=== PATIENT | female | born 1935 | race Caucasian/White ===

== ENCOUNTER → 2020-06-07 | Outpatient (CLI) | payer MEDICARE, OTHER ==
[~2020-06-07] MED LIST: ASPIRIN325 PO; CRANBERRY400 MG PO; METAMUCIL PAC1 UDPKT PO; OXYBUTYNIN 5 MG5 M2 PO; OXYCODONE HCL 55 MG PO; TRAMADOL 50 MG50 MG PO
--- NOTE | 2020-06-07 16:07 | 2DMMODE ---
[place] [address] 2 D/M-MODE ECHOCARDIOGRAM Name: AUDREY CORRIGAN Room: [facility]#: [id number] Admission: 06/07/20 Attend Phys: Hudson Jack Discharge: Date of : 31 Date of Service: 06/07/20 1607 Report #: [id number] THIS REPORT FOR: cc: Darryl Avila MD, Matthew D MD Blick,Deonte Ji MD [facility] ~ APPROVED REPORT Study performed: 06/07/2020 12:59:52 EXAM: Comprehensive 2D, Doppler, and color-flow Echocardiogram Patient Location: Out-Patient BSA: 1.65 HR: 68 bpm BP: 125/70 mmHg Other Information Study Quality: Good Indications Dyspnea Chest Pain 2D Dimensions IVSd: 11.53 (7-11mm) LVOT Diam: 20.12 (18-24mm) LVDd: 43.98 mm PWd: 10.65 (7-11mm) Ascending Ao: 29.56 (22-36mm) LVDs: 27.37 (25-40mm) Aortic Root: 29.66 mm Volumes Left Atrial Volume (Systole) LA ESV Index: 14.70 mL/m2 Aortic Valve AoV Peak Adolfo.: 1.25 m/s AO Peak Gr.: 6.22 mmHg LVOT Max P.61 mmHg AO Mean Gr.: 2.88 mmHg LVOT Mean P.18 mmHg LVOT Max V: 1.07 m/s AO V2 VTI: 19.97 cm LVOT Mean V: 0.67 m/s LYNNE (VTI): 4.16 cm2 LVOT V1 VTI: 26.13 cm AI [place]: 3.21 m/s2 AI PHT: 328.73 [place] [address] 2 D/M-MODE ECHOCARDIOGRAM Name: AUDREY CORRIGAN Room: [facility]#: [id number] Admission: 06/07/20 Attend Phys: Hudson Jack Discharge: Date of : 31 Date of Service: 06/07/20 1607 Report #: [id number] Mitral Valve E/A Ratio: 0.55 MV Decel. Time: 445.47 ms MV E Max Adolfo.: 0.40 m/s MV PHT: 129.19 ms MVA (PHT): 1.70 cm2 TDI E/Lateral E': 5.00 E/Medial E': 8.00 Medial E' Adolfo.: 0.05 m/s Lateral E' Adolfo.: 0.08 m/s Pulmonary Valve PV Peak Adolfo.: 0.72 m/s PV Peak Gr.: 2.04 mmHg Tricuspid Valve RAP Estimate: 5.00 mmHg TR Peak Gr.: 18.30 mmHg RVSP: 23.30 mmHg PA Pressure: 23.30 mmHg Left Ventricle The left ventricle is normal size. There is normal LV segmental wall motion. There is normal left ventricular wall thickness. Left ventricular systolic function is normal. The left ventricular ejection fraction is within the normal range. LVEF is 55-60%. Grade I - abnormal relaxation pattern. Right Ventricle The right ventricle is normal size. The right ventricular systolic function is normal. Atria The left atrium size is normal. The right atrium size is normal. Aortic Valve Mild aortic valve sclerosis. Mild aortic regurgitation. There is no aortic valvular stenosis. Mitral Valve The mitral valve is normal in structure. Trace mitral regurgitation. No evidence of mitral valve stenosis. Tricuspid Valve The tricuspid valve is normal in structure[place] [address] 2 D/M-MODE ECHOCARDIOGRAM Name: AUDREY CORRIGAN Room: [facility]#: [id number] Admission: 06/07/20 Attend Phys: Hudson Jack Discharge: Date of : 31 Date of Service: 06/07/20 1607 Report #: [id number] regurgitation. Pulmonic Valve The pulmonary valve is normal in structure. Mild pulmonic regurgitation. Great Vessels The aortic root is normal in size. IVC is normal in size and collapses >50% with inspiration. Pericardium There is no pericardial effusion. <Conclusion> LVEF is 55-60%. Mild aortic valve sclerosis. Mild aortic regurgitation. <ELECTRONICALLY SIGNED> By: Deonte Haji MD, FACC 06/07/201606 06 06 Deonte Haji MD, FACC /INF
--- NOTE | 2020-06-07 17:53 | CARDNUC ---
[place] [address] CARDIAC NUCLEAR IMAGING REPORT Name: AUDREY CORRIGAN Room: [facility]#: [id number] Admission: 06/07/20 Attend Phys: Hudson Jack Discharge: Date of : 31 Date of Service: 06/07/20 1752 Report #: [id number] THIS REPORT FOR: cc: Darryl Avila MD, Matthew D MD [place], Michael J. MD [facility] ~ APPROVED REPORT Study performed: 06/07/2020 15:39:47 Exam: Nuclear Stress Test Indication: Chest pain, Dyspnea on exertion Patient Location: Out-Patient Stress Tech: Jaymie Beverly Stress Nurse: Genevieve Vann RN NM Tech:DARLING Celeste Ht: 5 ft 2 in Wt: 141 lbs BSA: 1.65 m2 BMI: 25.78 Medical History Medical History: HTN, Chest pain, LILLY, uses cane for ambulation, s/p Covid 19. Medications: None Allergies: Ciprofloxacin Cardiac Risk Factors: Age, HTN, Dyspnea. Previous Cardiac Procedures: None Pretest Chest Pain Characteristics: No chest pain Exercise History: Sedentary Physical Disabilities: Uses cane for ambulation Meds Held (24 hrs): None Stress Test Details Stress Test: Pharmacologic stress testing performed using 0.4 mg of regadenoson per 5 mL given IV over 10 seconds. Reason for pharmacologic stress test: physical limitation, uses cane to ambulate.. HR Resting HR: 72 bpm Max Heart Rate (APMHR): 134 bpm Max HR Achieved: 99 bpm Target HR (85% APMHR): 113 bpm % of APMHR: 73 Recovery HR: 90 [place] [address] CARDIAC NUCLEAR IMAGING REPORT Name: AUDREY CORRIGAN Room: [facility]#: [id number] Admission: 06/07/20 Attend Phys: Hudson Jack Discharge: Date of : 31 Date of Service: 06/07/20 1752 Report #: [id number] Resting BP: 214/53 mmHg Max BP: 187/80 mmHg ECG Resting ECG: Sinus Rhythm, RBBB Stress ECG: Sinus Rhythm, RBBB ST Change: None Arrhythmia: None Recovery ECG: Sinus Rhythm, RBBB Recovery ST Change: None Recovery Arrhythmia: None Clinical Reason for Termination: Completed protocol Stress Symptoms: Nausea, Dyspnea, Headache Exercise duration: 00 min 00 sec Exercise capacity: 1.0 METs The patient tolerated Lexiscan infusion without significant cardiac symptoms. Nurse Comments Please see EKG notes Stress ECG Conclusion The baseline twelve-lead EKG shows sinus rhythm with right bundle branch block without significant ST segment abnormality. EKGs obtained during and post Lexiscan infusion show sinus rhythm with right bundle branch block. There were no acute ST wave changes when compared to baseline. There were no stress-induced arrhythmias. NM EXAM: Myocardial Perfusion REST/STRESS Imaging Protocol: Rest Tc-99m/Stress Tc-99m 1 day Resting Data Rest SPECT myocardial perfusion imaging was performed in supine position 30 minutes following the intravenous injection of 9.8 mCi of Tc-99m Sestamibi. Time of rest injection: 1405 Date: 06/07/2020 The images were gated to evaluate regional wall motion and calculate left ventricular ejection fraction. Administration Route: IV Administration Site: Right AC Pharmacologic Stress Pharmacologic stress test was performed by injecting Regadenoson 0.4 mg IV push followed by the intravenous injection of 34.3 [place] [address] CARDIAC NUCLEAR IMAGING REPORT Name: AUDREY CORRIGAN [id number] Admission: 06/07/20 Attend Phys: Hudson Jack Discharge: Date of : 31 Date of Service: 06/07/20 1752 Report #: [id number] Tc-99m Sestamibi. Time of stress injection: 1525 Date: 06/07/2020 Administration Route: IV Administration Site: Right AC Gated Stress SPECT was performed 40 minutes after stress injection. The images were gated to evaluate regional wall motion and calculate left ventricular ejection fraction. Stress only was performed in the Supine position. Study Quality Study: Good Artifact: Mild Soft tissue attenuation artifact Study Data At rest, the left ventricular ejection fraction was 69%.. Post stress, the left ventricular ejection was 65%.. TID = 1.01. Perfusion Perfusion images obtained at rest show some soft tissue attenuation adjacent to the lateral wall. No other defects were noted at rest. Post-rest images show uniform uptake of the radioisotope throughout the myocardium. There were no defects to suggest infarct or ischemia. Wall Motion Normal left ventricular wall motion. Nuclear Conclusion ECG Findings: negative for ischemia Clinical Findings: negative for ischemia Nuclear Findings: negative for ischemia Exercise Capacity: not assessed Left Ventricular Function: normal Risk Study: low Perfusion images show no defect to suggest infarct or ischemia. Left ventricular systolic function appears normal on gated studies. This is a low risk study. <Conclusion> The baseline twelve-lead EKG shows sinus rhythm with right bundle branch block without significant ST segment abnormality. EKGs obtained during and post Lexiscan infusion [place] [address] CARDIAC NUCLEAR IMAGING REPORT Name: AUDREY CORRIGAN Room: [facility]#: [id number] Admission: 06/07/20 Attend Phys: Hudson Jack Discharge: Date of : 31 Date of Service: 06/07/20 1752 Report #: [id number] right bundle branch block. There were no acute ST wave changes when compared to baseline. There were no stress-induced arrhythmias. <ELECTRONICALLY SIGNED> By: Marco Kirby MD, FACC 06/07/201751 51 51 Marco Kirby MD, FACC /INF
== END ==
LOC: M.CRD 06-01 15:12
PROVIDERS: ATTEND Internal Medicine
DX: I08.8 Other rheumatic multiple valve diseases (principal); R06.00 Dyspnea, unspecified; R07.89 Other chest pain; R09.89 Other specified symptoms and signs involving the circulatory and respiratory systems

== ENCOUNTER → 2021-07-06 | Outpatient (CLI) | payer MEDICARE, OTHER ==
--- NOTE | 2021-07-06 12:56 | 2DMMODE ---
[place] [address] 2 D/M-MODE ECHOCARDIOGRAM Name: AUDREY CORRIGAN Room: [facility]#: [id number] Admission: 07/06/21 Attend Phys: Hudson Jack Discharge: Date of : 31 Date of Service: 07/06/21 1256 Report #: [id number] THIS REPORT FOR: cc: Darryl Avila MD, Matthew D MD Blick,Deonte Ji MD [facility] ~ APPROVED REPORT Study performed: 07/06/2021 11:12:39 EXAM: Comprehensive 2D, Doppler, and color-flow Echocardiogram Patient Location: Out-Patient BSA: 1.67 HR: 66 bpm BP: 125/72 mmHg Other Information Study Quality: Good Indications Chest Pain Hypertension/HDD 2D Dimensions IVSd: 11.67 (7-11mm) LVOT Diam: 20.06 (18-24mm) LVDd: 33.96 mm PWd: 11.76 (7-11mm) Ascending Ao: 33.02 (22-36mm) LVDs: 25.39 (25-40mm) Aortic Root: 33.02 mm Volumes Left Atrial Volume (Systole) LA ESV Index: 19.90 mL/m2 Aortic Valve AoV Peak Adolfo.: 1.45 m/s AO Peak Gr.: 8.46 mmHg LVOT Max P.28 mmHg AO Mean Gr.: 4.34 mmHg LVOT Mean P.95 mmHg LVOT Max V: 1.03 m/s AO V2 VTI: 31.22 cm LVOT Mean V: 0.64 m/s LYNNE (VTI): 2.51 cm2 LVOT V1 VTI: 24.83 cm AI [place]: 1.41 m/s2 AI PHT: 725.69 [place] [address] 2 D/M-MODE ECHOCARDIOGRAM Name: AUDREY CORRIGAN Room: [facility]#: [id number] Admission: 07/06/21 Attend Phys: Hudson Jack Discharge: Date of : 31 Date of Service: 07/06/21 1256 Report #: [id number] Mitral Valve E/A Ratio: 0.72 MV Decel. Time: 368.81 ms MV E Max Adolfo.: 0.44 m/s MV PHT: 106.95 ms MVA (PHT): 2.06 cm2 TDI E/Lateral E': 4.00 E/Medial E': 5.50 Medial E' Adolfo.: 0.08 m/s Lateral E' Adolfo.: 0.11 m/s Pulmonary Valve PV Peak Adolfo.: 0.76 m/s PV Peak Gr.: 2.33 mmHg Tricuspid Valve RAP Estimate: 5.00 mmHg TR Peak Gr.: 23.66 mmHg RVSP: 28.66 mmHg PA Pressure: 28.66 mmHg Left Ventricle The left ventricle is normal size. Mild concentric left ventricular hypertrophy. The left ventricular systolic function is normal. The left ventricular ejection fraction is within the normal range. LVEF is 55-60%. Grade I - abnormal relaxation pattern. Right Ventricle The right ventricle is normal size. The right ventricular systolic function is normal. Atria The left atrium size is normal. The right atrium size is normal. Aortic Valve The Aortic valve is sclerotic. Mild aortic regurgitation. There is no aortic valvular stenosis. Mitral Valve The mitral valve is normal in structure. Mild mitral regurgitation. No evidence of mitral valve stenosis. Tricuspid Valve The tricuspid valve is normal in structure. [place] [address] 2 D/M-MODE ECHOCARDIOGRAM Name: AUDREY CORRIGAN Room: [facility]#: [id number] Admission: 07/06/21 Attend Phys: Hudson Jack Discharge: Date of : 31 Date of Service: 07/06/21 1256 Report #: [id number] Pulmonic Valve The pulmonary valve is normal in structure. Mild pulmonic regurgitation. Great Vessels The aortic root is normal in size. IVC is normal in size and collapses >50% with inspiration. Pericardium There is no pericardial effusion. <Conclusion> Mild concentric left ventricular hypertrophy. LVEF is 55-60%. The Aortic valve is sclerotic. Mild aortic regurgitation. Mild mitral regurgitation. <ELECTRONICALLY SIGNED> By: Deonte Haji MD, FACC 07/06/21 1256 1256 1256 Deonte Haji MD, FACC /INF
== END ==
LOC: M.CRD 09:59
PROVIDERS: ATTEND Internal Medicine
DX: I08.8 Other rheumatic multiple valve diseases (principal); R09.89 Other specified symptoms and signs involving the circulatory and respiratory systems